=== PATIENT | male | born 1990 | race Caucasian/White ===

== ENCOUNTER 2016-11-14 17:28 | Emergency (ER) | payer SELFPAY ==
--- NOTE | 2016-11-14 17:38 | ER Document Report ---
ED Medical Screen (RME) - General Stated Complaint: KNEE PAIN Notes: Patient states he has been having left knee pain for a while, but states pain got worse today. Denies injury. Pain is increased with straightening of the leg. I have greeted and performed a rapid initial assessment of this patient. A comprehensive ED assessment and evaluation of the patient, analysis of test results and completion of the medical decision making process will be conducted by additional ED providers. TRAVEL OUTSIDE OF THE [place] IN LAST 30 DAYS: No - Related Data Allergies/Adverse Reactions: No Known Allergies Allergy (Verified 11/14/16 17:37) Past Medical History Traumatic Medical History: Reports: Hx Fractures Past Surgical History: Reports: Hx Appendectomy - Immunizations Immunizations up to date: Yes Hx Diphtheria, Pertussis, Tetanus Vaccination: Yes Physical Exam - Extremities Notes: No swelling or redness noted to the left knee. Nontender on palpation.
--- NOTE | 2016-11-14 19:28 | ER Document Report ---
HPI - HPI Patient complains to provider of: worsening right knee pain Onset: Other - Chronic Onset/Duration: Gradual Quality of pain: Throbbing Pain Level: 4 Context: 26-year-old male with a history of chronic right knee pain and had worsening over the past 2 days. No fever or chills. No history of gout. The pain is worse when he extends his knee Associated Symptoms: None Exacerbated by: Other Relieved by: Denies - Knee extension Similar symptoms previously: Yes Recently seen / treated by doctor: No - ROS ROS below otherwise negative: Yes Systems Reviewed and Negative: Yes All other systems reviewed and negative - DERM Skin Color: Normal Past Medical History - General Information source: Patient - Social History Smoking Status: Current Every Day Smoker Chew tobacco use (# tins/day): No Frequency of alcohol use: None Drug Abuse: None Lives with: Family Family History: Reviewed & Not Pertinent Patient has suicidal ideation: No Patient has homicidal ideation: No Renal/ Medical History: Denies: Hx Peritoneal Dialysis Traumatic Medical History: Reports: Hx Fractures Past Surgical History: Reports: Hx Appendectomy - Immunizations Immunizations up to date: Yes Hx Diphtheria, Pertussis, Tetanus Vaccination: Yes Vertical Provider Document - CONSTITUTIONAL Agree With Documented VS: Yes Exam Limitations: No Limitations - INFECTION CONTROL TRAVEL OUTSIDE OF THE [place] IN LAST 30 DAYS: No - HEENT HEENT: Normocephalic - NECK Neck: Supple - . - RESPIRATORY O2 Sat by Pulse Oximetry: 97 - MUSCULOSKELETAL/EXTREMETIES Musculoskeletal/Extremeties: MAEW, FROM, Non-Tender, No Edema Notes: No effusion - NEURO Level of Consciousness: Awake, Alert Motor/Sensory: No Motor Deficit, No Sensory Deficit - DERM Integumentary: Warm, Dry, No Rash Course - Re-evaluation Re-evalutation: 11/14/16 19:28 X-rays negative - Vital Signs Vital signs: Temp Pulse Resp BP Pulse Ox 98.7 F 112 H 19 125/63 97 11/14/16 17:34 11/14/16 17:34 11/14/16 18:25 11/14/16 17:34 11/14/16 17:34 Discharge - Discharge Clinical Impression: exacerbation of chronic left knee Condition: Good Disposition: HOME, SELF-CARE Instructions: Use of Crutches ([facility]), Ice & Elevation ([facility]), Acetaminophen, Anti -Inflammatory Medication ([facility]) Additional Instructions: elevate ice motrin tylenol sho wrap for comfort The orthopedic doctor for follow-up Return to the emergency room if worse Please complete the patient satisfaction survey if you get one, and return it.. If you do not receive a survey, then you can go to the [facility] website, [email or web address] and place your comments about your very good care. Thank you very much. It was a pleasure being your medical provider today. Prescriptions: Ibuprofen [Motrin 800 mg Tablet] 800 mg PO Q8HP PRN #30 tablet PRN Reason: Forms: Return to Work Referrals: FLORECITA ADEN MD [ACTIVE STAFF] - Follow up as needed
[2016-11-14 19:35] VITALS: BP 135/68
== END 2016-11-14 19:36 | disposition home or self-care (01) ==
LOC: ER 17:28
DX: M25.561 Pain in right knee (principal); G89.29 Other chronic pain; F17.200 Nicotine dependence, unspecified, uncomplicated
CPT/HCPCS: 99283

== ENCOUNTER 2020-09-14 17:09 | Emergency (ER) | payer SELFPAY ==
[2020-09-14 17:57] VITALS: BP 137/81
[2020-09-14] MEDS ORDERED: PENICILLIN V POTASSIUM 500 MG TABLET PO ONE (18:19)
--- NOTE | 2020-09-14 18:25 | ER Document Report ---
ED ENT - General Stated Complaint: DENTAL PROBLEM Time Seen by Provider: 09/14/20 18:14 Mode of Arrival: Ambulatory Information source: Patient TRAVEL OUTSIDE OF THE [place] IN LAST 30 DAYS: No - HPI Patient complains to provider of: Dental problem Notes: Patient here with complaints of left-sided dental pain. The patient states he has a lot of bad teeth. Over the last few days he has had some swelling and pain to the left cheek area. No fever. No difficulty breathing or swallowing. No abdominal pain. No nausea, vomiting, diarrhea. No chest pain or shortness of breath. No rash. No injury. Pain is constant, moderate, worse with palpation and eating, nothing seems to make it better. The patient denies any other specific complaints at this time. - Related Data Allergies/Adverse Reactions: No Known Allergies Allergy (Verified 11/14/16 17:37) Past Medical History - Social History Smoking Status: Current Every Day Smoker Frequency of alcohol use: None Drug Abuse: None Family History: Reviewed & Not Pertinent Renal/ Medical History: Denies: Hx Peritoneal Dialysis Traumatic Medical History: Reports: Hx Fractures Past Surgical History: Reports: Hx Appendectomy - Immunizations Immunizations up to date: Yes Hx Diphtheria, Pertussis, Tetanus Vaccination: Yes Review of Systems - Review of Systems -: Yes All other systems reviewed and negative Physical Exam - Vital signs Vitals: Temp Pulse Resp BP Pulse Ox 99.1 F 98 16 137/81 H 100 09/14/20 17:56 09/14/20 17:56 09/14/20 17:56 09/14/20 17:56 09/14/20 17:56 - Notes Notes: GENERAL: alert, cooperative, nontoxic, no distress. HEAD: normocephalic, atraumatic EYES: conjunctiva pink without discharge, no external redness or swelling. EARS: no external swelling, no external redness, no mastoid redness, swelling, tenderness. Ear canals are clear without swelling or drainage. TMs pearly alcazar, no redness, no bulging, normal landmarks, no perforation. NOSE: atraumatic, no external swelling. clear rhinorrhea noted. MOUTH/THROAT: mucous membranes moist and pink, posterior pharynx without erythema, swelling, exudate. No trismus or drooling. Voice is normal, no stridor. Widespread dental decay. Swelling and tenderness to the left maxillary area with no redness. I do not appreciate any drainable abscess identified to the gums or onto the face. No facial redness. Mild tenderness to palpation to the lower left jaw as well. Widespread dental decay noted in this area. No drainable abscess. No sublingual swelling or induration. NECK: soft, supple, full range of motion, no meningismus. CHEST: no distress, lungs clear and equal throughout. No wheezing, rales, rhonchi. CARDIAC: regular rate and rhythm, no murmur EXTREMITIES: full range of motion of all extremities. No redness, no swelling. NEURO: alert and oriented A&O3, no focal deficits, full range of motion of all extremities. PYSCH: appropriate mood, affect. Patient is cooperative. SKIN: pink, warm, dry, no rash. Course - Re-evaluation Re-evalutation: 09/14/20 18:25 Patient is nontoxic-appearing with stable vitals. Here with complaints of left- sided facial pain and swelling. Patient is noted to have widespread dental decay in this area. Patient likely with a early dental abscess. I do not appreciate any drainable abscess to the gumline or to the face. He is afebrile. He is in no distress. No sign of Adelina's angina. Patient was given a dose of Pen-Vee K in the emergency department will be discharged home with Pen-Vee K and instructions to follow-up with a dentist at the next available appointment. Follow-up if there is no improvement in the next 48 hours, sooner for worsening pain, severe significant swelling, difficulty breathing or swallowing, persistent vomiting, or any further concerns. The patient's emergency department workup and current diagnosis were explained to the patient and or family. Follow-up instructions were provided. Medications if prescribed were discussed. Instructions for when to return to the emergency department including specific worrisome symptoms were discussed with the patient and/or family. - Vital Signs Vital signs: Temp Pulse Resp BP Pulse Ox 99.1 F 98 16 137/81 H 100 09/14/20 17:56 09/14/20 17:56 09/14/20 17:56 09/14/20 17:56 09/14/20 17:56 - Laboratory Results Critical Laboratory Results Reviewed: No Critical Results - Radiology Results Critical Radiology Results Reviewed: No Critical Results Discharge - Discharge Clinical Impression: Dental abscess Condition: Stable Disposition: HOME, SELF-CARE Instructions: Dentist, Dental Infection or Abscess ([facility]) Additional Instructions: Take medications as prescribed. Apply warm compresses to the sore area. You may also take Tylenol as needed for pain. Follow-up with a dentist at the next available appointment. Follow-up sooner for worsening pain, fever, significantly spreading redness, difficulty breathing or swallowing, persistent vomiting, or any further concerns. Prescriptions: Penicillin V Potassium [Penicillin Vk 500 mg Tablet] 500 mg PO QID #40 tablet Diclofenac Sodium [Voltaren 50 Mg Tablet.] 50 mg PO BID #20 tablet. Referrals: [facility] [Provider Group] - Follow up as needed [facility] [Provider Group] - Follow up as needed
== END 2020-09-14 18:23 | disposition home or self-care (01) ==
LOC: ER 17:09
DX: K04.7 Periapical abscess without sinus (principal); F17.200 Nicotine dependence, unspecified, uncomplicated
CPT/HCPCS: 99283